=== PATIENT | female | born 1990 | race Hispanic/Latino ===

== ENCOUNTER 2019-11-17 11:02 | Emergency (ER) | payer OTHER, SELFPAY ==
--- NOTE | 2019-11-17 12:27 | RAD REPORT ---
EXAM DESCRIPTION: RAD -Hand Left 3 View - 11/17/2019 12:14 pm CLINICAL HISTORY: Left hand pain status post injury FINDINGS: Mildly displaced fracture involves the proximal aspect of the fourth distal phalanx extend ing intraarticularly No dislocation
--- NOTE | 2019-11-17 13:02 | EDPHYS ---
Physician Documentation [facility] Name: Mitra Pollard Age: 29 yrs Sex: Female : 1990 Arrival Date: 11/17/2019 Time: 11:04 Bed 12 Private MD: ED Physician José Luis Blue HPI: 11/17 12:58 This 29 yrs old Female presents to ER via Ambulatory with complaints of Finger jr8 Injury. 12:58 The patient or guardian reports a contusion, decreased range of motion, pain, swelling. jr8 The complaints affect the DIP of left ring finger. Context: The problem was sustained at home, resulted from a direct blow, by a door. Onset: The symptoms/episode began/occurred acutely, yesterday. Modifying factors: The symptoms are alleviated by nothing, the symptoms are aggravated by movement. Associated signs and symptoms: The patient has no apparent associated signs or symptoms. Severity of symptoms: At their worst the symptoms were moderate, in the emergency department the symptoms are unchanged. The patient has not experienced similar symptoms in the past. The patient has not recently seen a physician. Stated that she accidently slammed finger into door . 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 - Social history:: Smoking status: Patient/guardian denies using tobacco. - Ebola Screening: : No symptoms or risks identified at this time. ROS: 12:58 Eyes: Negative for injury, pain, redness, and discharge, ENT: Negative for injury, jr8 pain, and discharge, Neck: Negative for injury, pain, and swelling, Cardiovascular: Negative for chest pain, palpitations, and edema, Respiratory: Negative for shortness of breath, cough, wheezing, and pleuritic chest pain, Abdomen/GI: Negative for abdominal pain, nausea, vomiting, diarrhea, and constipation, Back: Negative for injury and pain, Skin: Negative for injury, rash, and discoloration, Neuro: Negative for headache, weakness, numbness, tingling, and seizure. 12:58 MS/extremity: Positive for decreased range of motion, ecchymosis, pain, swelling, tenderness, of the DIP of left ring finger. Exam: 12:58 Constitutional: This is a well developed, well nourished patient who is awake, alert, jr8 and in no acute distress. Cardiovascular: Regular rate and rhythm with a normal S1 and S2. No gallops, murmurs, or rubs. Normal PMI, no JVD. No pulse deficits. Respiratory: Lungs have equal breath sounds bilaterally, clear to auscultation and percussion. No rales, rhonchi or wheezes noted. No increased work of breathing, no retractions or nasal flaring. Skin: Warm, dry with normal turgor. Normal color with no rashes, no lesions, and no evidence of cellulitis. Neuro: Awake and alert, GCS 15, oriented to person, place, time, and situation. Cranial nerves II-XII grossly intact. Motor strength 5/5 in all extremities. Sensory grossly intact. Cerebellar exam normal. Normal gait. 12:58 Musculoskeletal/extremity: Extremities: grossly normal except: noted in the left fourth digit: Patient has bruising to distal and middle portions of the 4th phalanx with decreased ROM and pain. Normal sensation. 2+ radial pulses bilaterally . Vital Signs: 11:54 BP 111 / 74; Pulse 75; Resp 18 S; Temp 98.5(TE); Pulse Ox 100% on R/A; Weight 72.57 kg aa5 (R); Height 5 ft. 2 in. (157.48 cm) (R); Pain 9/10; 11:54 Body Mass Index 29.26 (72.57 kg, 157.48 cm) aa5 Procedures: 12:58 Splinting: Splint applied to DIP of left ring finger using finger splint, applied by 8 nurse. Examined by me, post splint application: neurovascular intact, 2+ distal pulses palpable, brisk capillary refill noted, Patient tolerated well. MDM: 12:53 Patient medically screened. 8 12:58 Data reviewed: vital signs, nurses notes, radiologic studies, plain films. Data 8 interpreted: Pulse oximetry: on room air is 100 %. Interpretation: normal. Counseling: I had a detailed discussion with the patient and/or guardian regarding: the historical points, exam findings, and any diagnostic results supporting the discharge/admit diagnosis, radiology results, the need for outpatient follow up, a hand specialist, to return to the emergency department if symptoms worsen or persist or if there are any questions or concerns that arise at home. 11/17 11:55 Order name: Hand Left 3 View XRAY; Complete Time: 12:53 aa5 11/17 12:57 Order name: Splint - Finger; Complete Time: 13:24 jr8 Administered Medications: No medications were administered Disposition: 15:20 Co-signature as Attending Physician, José Luis Blue MD I agree with the assessment and minal plan of care. Disposition: 11/17/19 13:01 Discharged to Home. Impression: Displaced fracture of distal phalanx of finger. - Condition is Stable. - Discharge Instructions: Finger Fracture. - Prescriptions for Ibuprofen 800 mg Oral Tablet - take 1 tablet by ORAL route every 12 hours As needed take with food; 20 tablet. Tylenol- Codeine #3 300-30 mg Oral Tablet - take 2 tablets by ORAL route every 6 hours As needed; 12 tablet. - Medication Reconciliation Form, Thank You Letter, Antibiotic Education, Prescription Opioid Use form. - Follow up: Domenico Alcantar MD; When: 5 - 6 days; Reason: Recheck today's complaints, Continuance of care, Re-evaluation by your physician. - Problem is new. - Symptoms have improved. Signatures: Dispatcher [employer] EDJosé Luis Parker MD MD cha Calderon, Audri, RN RN aa5 Rocky Denis PA PA jr8 Corrections: (The following items were deleted from the chart) 13:25 13:01 11/17/2019 13:01 Discharged to Home. Impression: Displaced fracture of distal aa5 phalanx of finger. Condition is Stable. Forms are Medication Reconciliation Form, Thank You Letter, Antibiotic Education, Prescription Opioid Use. Follow up: Domenico Alcantar; When: 5 - 6 days; Reason: Recheck today's complaints, Continuance of care, Re-evaluation by your physician. Problem is new. Symptoms have improved. jr8
--- NOTE | 2019-11-17 13:02 | ER ---
Nurse's Notes [facility] Name: Mitra Pollard Age: 29 yrs Sex: Female : 1990 Arrival Date: 11/17/2019 Time: 11:04 Bed 12 Private MD: Diagnosis: Displaced fracture of distal phalanx of finger Presentation: 11/17 11:52 Presenting complaint: Patient states: "I slammed the door on my finger". pt c/o pain aa5 and bruising to left ring finger. Transition of care: patient was not received from another setting of care. Onset of symptoms was November 16, 2019. Risk Assessment: Do you want to hurt yourself or someone else? Patient reports no desire to harm self or others. Initial Sepsis Screen: Does the patient meet any 2 criteria? No. Patient's initial sepsis screen is negative. Does the patient have a suspected source of infection? No. Patient's initial sepsis screen is negative. Care prior to arrival: None. 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 - Social history:: Smoking status: Patient/guardian denies using tobacco. - Ebola Screening: : No symptoms or risks identified at this time. Screenin:50 Abuse screen: Denies threats or abuse. Nutritional screening: No deficits noted. aa5 Tuberculosis screening: No symptoms or risk factors identified. Fall Risk None identified. Assessment: 12:50 General: Appears comfortable, Behavior is calm, cooperative. Pain: Complains of pain in aa5 left ring finger Pain currently is 9 out of 10 on a pain scale. Quality of pain is described as aching, Is continuous. Neuro: Level of Consciousness is awake, alert, obeys commands, Oriented to person, place, time, situation. Cardiovascular: Patient's skin is warm and dry. Respiratory: Airway is patent Respiratory effort is even, unlabored, Respiratory pattern is regular, symmetrical. GI: No signs and/or symptoms were reported involving the gastrointestinal system. : No signs and/or symptoms were reported regarding the genitourinary system. EENT: No signs and/or symptoms were reported regarding the EENT system. Derm: Skin is pink, warm \\T\\ dry. Bruising that is dark purple, on palmar aspect of distal phalanx of left ring finger, palmar aspect of middle phalanx of left ring finger and palmar aspect of proximal phalanx of left ring finger and DIP of left ring finger. Musculoskeletal: Range of motion: limited in DIP of left ring finger. 13:22 Reassessment: Pre-formed finger splint applied to left ring finger. Left ring finger aa5 varun taped to left middle finger per PA. . 13:22 Reassessment: Patient is alert, oriented x 3, equal unlabored respirations, skin aa5 warm/dry/pink. Vital Signs: 11:54 BP 111 / 74; Pulse 75; Resp 18 S; Temp 98.5(TE); Pulse Ox 100% on R/A; Weight 72.57 kg aa5 (R); Height 5 ft. 2 in. (157.48 cm) (R); Pain 9/10; 11:54 Body Mass Index 29.26 (72.57 kg, 157.48 cm) aa5 ED Course: 11:04 Patient arrived in ED. as 11:53 Triage completed. aa5 11:53 Arm band placed on. aa5 11:53 Patient has correct armband on for positive identification. aa5 12:14 Hand Left 3 View XRAY In Process Unspecified. EDMS 12:52 Rocky Denis [facility] jr8 12:52 José Luis Blue MD is Attending Physician. jr8 13:01 Domenico Alcantar MD is Referral Physician. jr8 13:09 Beatriz Thompson, KYRA is Primary Nurse. aa5 13:22 No provider procedures requiring assistance completed. Patient did not have IV access aa5 during this emergency room visit. Administered Medications: No medications were administered Outcome: 13:01 Discharge ordered by . jr8 13:22 Discharged to home ambulatory, with family. aa5 13:22 Condition: stable 13:22 Discharge instructions given to patient, Instructed on discharge instructions, follow up and referral plans. medication usage, Demonstrated understanding of instructions, follow-up care, medications, Prescriptions given X 2. 13:25 Patient left the ED. aa5 Signatures: Dispatcher [employer] Roxy Melendrez Audri, RN RN aa5 Rocky Denis PA PA jr8
[2019-11-17 14:23] VITALS: BP 111/74; TEMP 98.5; O2SAT 100
== END 2019-11-17 13:25 | disposition home or self-care (01) ==
LOC: ER 11:02
DX: S62.635A Displaced fracture of distal phalanx of left ring finger, initial encounter for closed fracture (principal); W23.0XXA Caught, crushed, jammed, or pinched between moving objects, initial encounter; Y93.89 Activity, other specified; Y92.9 Unspecified place or not applicable
CPT/HCPCS: 99283

== ENCOUNTER 2024-02-22 12:56 | Emergency (ER) | payer BC, SELFPAY ==
[2024-02-22] MEDS ORDERED: NA CHLORIDE 0.9% 1,000 ML ONE (13:11)
[2024-02-22] MEDS ORDERED: ONDANSETRON 4 MG/2 ML VIAL ONE (13:11)
[2024-02-22 13:43] LABS: Absolute Eosinophils 0.1 K/uL (0-0.5); Absolute Monocytes 0.2 K/uL (0.1-1.3); Absolute Neutrophil 5.1 K/uL (1.8-8.0); Basophils % 0.7 % (0-1.3); Eosinophils % 0.8 % (0-4.4); Hematocrit 34.2 % (36.0-45.0); Lymphocytes % 14.9 % (15.3-44.8); MCH 27.6 pg (27.0-35.0); MCHC 32.2 g/dL (32.0-36.0); MCV 85.8 fL (80-100); Monocytes % 3.4 % (3.3-12.3); Neutrophils % 80.2 % (41.7-73.7); Platelets 264 thou/uL (152-406); RBC Red Blood Cell Count 3.99 M/uL (3.86-4.86); Red Cell Distribution Width 14.2 % (12.1-15.2)
[2024-02-22 13:44] LABS: Albumin 3.5 g/dL (3.4-5.0); Albumin/Globulin Ratio 0.8 (1.1-1.8); Anion Gap 8.7 mEq/L (5.0-15.0); Globulin 4.6 g/dL (2.3-3.5); Potassium 3.7 mEq/L (3.5-5.1); Protein, Total 8.1 g/dL (6.4-8.2)
[2024-02-22] MEDS ORDERED: KETOROLAC 30 MG/ML INJ ONE (13:55)
[2024-02-22 14:22] LABS: Specific Gravity < 1.005 (1.005-1.030)
[2024-02-22 14:37] LABS: Specific Gravity < 1.005 (1.005-1.030); Sqamous Epithelial <5 /HPF (None Seen); Urine Bacteria None Seen /HPF (<20); Urine Bilirubin NEGATIVE (Negative); Urine Blood Negative (Negative); Urine Clarity Turbid (Clear); Urine Color Colorless (Yellow); Urine Culture Reflex Order NOT NEEDED; Urine Glucose NEGATIVE (Negative); Urine Ketones NEGATIVE (Negative); Urine Microscopic Reflex YN ORDER UMIC; Urine Nitrite NEGATIVE (Negative); Urine Protein NEGATIVE (Negative); Urine RBC <5 /HPF (None Seen); Urine Urobilinogen Normal (Normal); Urine WBC <5 /HPF (<5)
--- NOTE | 2024-02-22 14:54 | ER ---
Nurse's Notes [facility] Name: Mitra Pollard Age: 33 yrs Sex: Female : 1990 Arrival Date: 02/22/2024 Time: 12:56 Bed 8 Private MD: Diagnosis: Nausea with vomiting, unspecified;Headache Presentation: 02/21 13:00 Chief complaint: Patient states: headache and vomiting that started today. Coronavirus as6 screen: At this time, the client does not indicate any symptoms associated with coronavirus-19. Ebola Screen: No symptoms or risks identified at this time. Initial Sepsis Screen: Does the patient meet any 2 criteria? No. Patient's initial sepsis screen is negative. Does the patient have a suspected source of infection? No. Patient's initial sepsis screen is negative. Risk Assessment: Do you want to hurt yourself or someone else? Patient reports no desire to harm self or others. Onset of symptoms was February 22, 2024. 13:00 Acuity: DIAMOND 3 as6 13:00 Method Of Arrival: Ambulatory as6 Triage Assessment: 13:04 General: Appears in no apparent distress. Behavior is calm, cooperative. Pain: as6 Complains of pain in head. Neuro: Reports headache. 13:15 Pain: Pain began this morning. nj1 Historical: - Allergies: 13:03 NKA; as6 - PMHx: 13:03 Heart Murmur; as6 - PSHx: 13:03 None; as6 - Immunization history:: Adult Immunizations up to date. - Infectious Disease History:: Denies. - Social history:: Smoking status: Patient denies any tobacco usage or history of. Screenin:29 [facility] ED Fall Risk Assessment (Adult) History of falling in the last 3 months, nj1 including since admission No falls in past 3 months (0 pts) Confusion or Disorientation No (0 pts) Intoxicated or Sedated No (0 pts) Impaired Gait No (0 pts) Mobility Assist Device Used No (0 pt) Altered Elimination No (0 pt) Score/Fall Risk Level 0 - 2 = Low Risk Oriented to surroundings, Maintained a safe environment, Hourly rounding (assess needs \T\ fall precautionary measures) done. Abuse screen: Denies threats or abuse. Denies injuries from another. Nutritional screening: No deficits noted. Tuberculosis screening: No symptoms or risk factors identified. Assessment: 13:15 General: Appears in no apparent distress. comfortable, Behavior is calm, cooperative, nj1 appropriate for age. Pain: Complains of pain in head Pain currently is 8 out of 10 on a pain scale. Neuro: Level of Consciousness is awake, alert, obeys commands, Oriented to person, place, time, situation, Reports headache in right parietal area, since this morning. Cardiovascular: Patient's skin is warm and dry. Respiratory: Airway is patent Respiratory effort is even, unlabored. Musculoskeletal: Walking boot in place, right foot/leg. 14:06 Reassessment: Patient appears in no apparent distress at this time. Patient and/or db family updated on plan of care and expected duration. Pain level reassessed. Patient is alert, oriented x 3, equal unlabored respirations, skin warm/dry/pink. General: Appears in no apparent distress. comfortable, Behavior is calm, cooperative. Neuro: Level of Consciousness is awake, alert, obeys commands. 14:54 Reassessment: pt tolerated PO challenge, states she is no longer nauseated, no kn vomiting. pt is AAOx4, in no acute distress,will continue to monitor pt.. 15:12 Reassessment: Patient appears in no apparent distress at this time. Patient is alert, kn oriented x 3, equal unlabored respirations, skin warm/dry/pink. Patient states feeling better. Patient states symptoms have improved. Vital Signs: 13:00 BP 114 / 79; Pulse 70; Resp 15 S; Temp 98.2(O); Pulse Ox 100% on R/A; Weight 74.84 kg as6 (R); Height 5 ft. 2 in. (R); Pain 8/10; 13:55 BP 100 / 74; Pulse 62; Resp 18; Pulse Ox 98% on R/A; db 14:55 BP 94 / 73; Pulse 63; Resp 16; Pulse Ox 100% ; kn 13:00 Body Mass Index 30.18 (74.84 kg, 157.48 cm) as6 13:00 Pain Scale: Adult as6 [place] Coma Score: 13:34 Eye Response: spontaneous(4). Motor Response: obeys commands(6). Verbal Response: kb oriented(5). Total: 15. ED Course: 12:57 Patient arrived in ED. rg4 13:01 Frannie Medel FNP-C is [facility]. kb 13:01 Jerome Mcdonald MD is Attending Physician. kb 13:03 Triage completed. as6 13:04 Arm band placed on. as6 13:10 Omayra Gallegos, RN is Primary Nurse. nj1 13:15 Patient has correct armband on for positive identification. Bed in low position. Call nj1 light in reach. Adult w/ patient. Provided Education on: call light, fall precautions. 13:18 Inserted saline lock: 22 gauge in right antecubital area, using aseptic technique. nj1 Blood collected. 14:05 Urine collected: clean catch specimen, clear. db 14:06 Primary Nurse role handed off by Omayra Gallegos, KYRA db 14:06 Estela Nevarez, RN is Primary Nurse. db 15:12 No provider procedures requiring assistance completed. IV discontinued, intact, kn bleeding controlled, No redness/swelling at site. Administered Medications: 13:19 Drug: NS 0.9% IV 1000 ml IV at 1 bolus Per protocol; 1000 mL bolus Route: IV; Rate: 1 nj1 bolus; Site: right antecubital; 15:12 Follow up: Response: No adverse reaction; IV Status: Completed infusion kn 13:20 Drug: Ondansetron IVP 4 mg IVP once; over 2 minutes Route: IVP; Site: right antecubital;nj1 14:00 Follow up: Response: No adverse reaction; Nausea is decreased nj1 14:00 Drug: Ketorolac IVP 15 mg IVP once Route: IVP; Site: right antecubital; db 15:12 Follow up: Response: No adverse reaction kn Medication: 15:12 VIS not applicable for this client. kn Outcome: 14:53 Discharge ordered by . kb 15:12 Discharged to home via wheelchair, with family, kn 15:12 Condition: stable 15:12 Discharge instructions given to patient, 15:13 Patient left the ED. nj1 Signatures: Frannie Medel FNP-C FNP-Daphne Gallegos rg4 Luis Sharma RN KYRA as6 Estela Nevarez, RN RN db Omayra Gallegos, RN RN nj1 FANNY GRAYSON, RN KYRA kn
--- NOTE | 2024-02-22 14:54 | EDPHYS ---
Physician Documentation [facility] Name: Mitra Pollard Age: 33 yrs Sex: Female : 1990 Arrival Date: 02/22/2024 Time: 12:56 Bed 8 Private MD: ED Physician Jerome Mcdonald HPI: 02/21 13:34 This 33 yrs old Female presents to ER via Ambulatory with complaints of kb Headache, Nausea/Vomiting. 13:34 Pt is a 33 year old female who presents for headache, nausea and vomiting that started kb this morning. Denies abd pain, fever, diarrhea. . Historical: - Allergies: 13:03 NKA; as6 - PMHx: 13:03 Heart Murmur; as6 - PSHx: 13:03 None; as6 - Immunization history:: Adult Immunizations up to date. - Infectious Disease History:: Denies. - Social history:: Smoking status: Patient denies any tobacco usage or history of. ROS: 13:34 Constitutional: As per HPI kb Exam: 13:34 Constitutional: This is a well developed, well nourished patient who is awake, alert, kb and in no acute distress. Head/Face: Normocephalic, atraumatic. ENT: Moist Mucous membranes Cardiovascular: Regular rate Respiratory: Respirations even and unlabored. No increased work of breathing. Talking in full sentences Abdomen/GI: Soft, non-tender. No distention Skin: Warm, dry with normal turgor. Normal color. MS/ Extremity: Pulses equal, no cyanosis. Neurovascular intact. Full, normal range of motion. Neuro: Awake and alert, GCS 15, oriented to person, place, time, and situation. Moves all extremities. Normal gait. Vital Signs: 13:00 BP 114 / 79; Pulse 70; Resp 15 S; Temp 98.2(O); Pulse Ox 100% on R/A; Weight 74.84 kg as6 (R); Height 5 ft. 2 in. (R); Pain 8/10; 13:55 BP 100 / 74; Pulse 62; Resp 18; Pulse Ox 98% on R/A; db 14:55 BP 94 / 73; Pulse 63; Resp 16; Pulse Ox 100% ; kn 13:00 Body Mass Index 30.18 (74.84 kg, 157.48 cm) as6 13:00 Pain Scale: Adult as6 [place] Coma Score: 13:34 Eye Response: spontaneous(4). Motor Response: obeys commands(6). Verbal Response: kb oriented(5). Total: 15. MDM: 13:01 Patient medically screened. kb 13:34 Differential diagnosis: migraine, viral gastroenteritis. Data reviewed: vital signs, kb nurses notes. 14:52 Counseling: I had a detailed discussion with the patient and/or guardian regarding the kb historical points, exam findings, and any diagnostic results supporting the discharge/admit diagnosis, lab results, the need for outpatient follow up, a family practitioner, to return to the emergency department if symptoms worsen or persist or if there are any questions or concerns that arise at home. 02/21 13:06 Order name: CBC with Diff; Complete Time: 13:58 kb 02/21 13:06 Order name: CMP; Complete Time: 13:58 kb 02/21 13:06 Order name: Lipase; Complete Time: 13:58 kb 02/21 13:06 Order name: Test, Urine; Complete Time: 14:27 kb 02/21 13:06 Order name: Urinalysis w/ reflexes; Complete Time: 14:47 kb 02/21 13:06 Order name: IV Saline Lock; Complete Time: 13:24 kb 02/21 13:06 Order name: Labs collected and sent; Complete Time: 13:24 kb 02/21 14:37 Order name: PO challenge; Complete Time: 14:53 kb Administered Medications: 13:19 Drug: NS 0.9% IV 1000 ml IV at 1 bolus Per protocol; 1000 mL bolus Route: IV; Rate: 1 nj1 bolus; Site: right antecubital; 15:12 Follow up: Response: No adverse reaction; IV Status: Completed infusion kn 13:20 Drug: Ondansetron IVP 4 mg IVP once; over 2 minutes Route: IVP; Site: right antecubital;nj1 14:00 Follow up: Response: No adverse reaction; Nausea is decreased nj1 14:00 Drug: Ketorolac IVP 15 mg IVP once Route: IVP; Site: right antecubital; db 15:12 Follow up: Response: No adverse reaction kn Disposition Summary: 02/22/24 14:53 Discharge Ordered Notes: Location: Home kb Condition: Stable kb Diagnosis - Nausea with vomiting, unspecified kb - Headache kb Followup: kb - With: Emergency Department - When: As needed - Reason: Worsening of condition Followup: kb - With: Private Physician - When: 2 - 3 days - Reason: Recheck today's complaints, Continuance of care, Re-evaluation by your physician Discharge Instructions: - Discharge Summary Sheet kb - Nausea and Vomiting, Adult, [id number] kb - General Headache Without Cause, [id number] kb Forms: - Medication Reconciliation Form kb - Thank You Letter kb - Antibiotic Education kb - Prescription Opioid Use kb - Patient Portal Instructions kb - Leadership Thank You Letter kb Prescriptions: - Zofran 4 mg Oral tablet - take 1 tablet ORAL route every 6 hours As needed; 12 tablet; Refills: 0, kb Product Selection Permitted Addendum: 02/25/2024 01:01 I was immediately available for consultation during this patient's visit. I did not e c2 personally see the patient or discuss the patient with the PRINCE. . Signatures: Dispatcher [employer] EDFrannie Snow, NETWORK TECHNICIAN-C NETWORK TECHNICIAN-Luis Vega, RN RN as6 Estela Nevarez RN RN db Omayra Gallegos RN RN nj1 Jerome Mcdonald MD MD ec2 FANNY GRAYSON RN kn Corrections: (The following items were deleted from the chart) 02/21 13:07 13:07 CBC+H.LAB.BRZ ordered. EDMS EDMS 13:07 13:07 COMPREHENSIVE METABOLIC PANEL+C.LAB.BRZ ordered. EDMS EDMS 13:07 13:07 LIPASE+C.LAB.BRZ ordered. EDMS EDMS 13:07 13:07 Test, Urine+UC.LAB.BRZ ordered. EDMS EDMS 13:07 13:07 Urinalysis+U.LAB.BRZ ordered. EDMS EDMS
[2024-02-22 18:11] VITALS: BP 94/73; TEMP 98.2; O2SAT 100
== END 2024-02-22 15:13 | disposition home or self-care (01) ==
LOC: ER 12:56
DX: R11.2 Nausea with vomiting, unspecified (principal); R51.9 Headache, unspecified
CPT/HCPCS: 96361; 85025; 81001; 36415; 81025; 83690; 80053; 96375; 96374; 99284; J2405; J7030